=== PATIENT | male | born 1940 | race African-American/Black ===

== ENCOUNTER 2017-03-04 10:04 | Inpatient (IN) | payer MEDICARE, BC ==
[~2017-03-04] VITALS: Ht 185.4 cm; Wt 81.6 kg
[2017-03-04] MEDS ORDERED: LEVO25TA7 PO (10:13)
[2017-03-04] MEDS ORDERED: LEVETIRACETAM 500MG PREMIX 100 ML IV ONE (11:00)
[2017-03-04] MEDS ORDERED: LORAZEPAM 2MG/ML CPJ IV ONE (12:15)
[2017-03-04 12:16] LABS: *AMPHETAMINES SCREEN URINE NEGATIVE (NEGATIVE); *BARBITURATES SCREEN URINE NEGATIVE (NEGATIVE); *BENZODIAZEPINES SCREEN URINE NEGATIVE (NEGATIVE); *COCAINE SCREEN URINE NEGATIVE (NEGATIVE); CANNABINOID URINE SCREEN NEGATIVE (NEGATIVE); ECSTASY MDMA SCREEN URINE NEGATIVE (NEGATIVE); METHADONE URINE SCREEN NEGATIVE (NEGATIVE); OPIATES URINE SCREEN PRESUMTIVE POSITIVE (NEGATIVE); PHENCYCLIDINE URINE SCREEN NEGATIVE (NEGATIVE)
[2017-03-04 13:38] LABS: GLUCOSE URINE NEGATIVE (NEGATIVE); KETONES URINE NEGATIVE (NEGATIVE); LEUKOCYTE ESTERASE URINE 3+ (NEGATIVE); NITRITE URINE NEGATIVE (NEGATIVE); OCCULT BLOOD URINE 1+ (NEGATIVE); PH URINE 6.5 (4.5-8.0); PROTEIN URINE 2+ (NEGATIVE); SPECIFIC GRAVITY URINE 1.012 (1.005-1.030); UROBILINOGEN URINE 0.2 E.U./dL (0.2-1.0)
[2017-03-04 13:51] LABS: COLOR URINE YELLOW (YELLOW)
[2017-03-04 13:52] LABS: BACTERIA URINE 4+; CLARITY URINE SL HAZY (CLEAR); SQUAMOUS EPITHELIAL CELL URINE NONE SEEN /lpf (RARE/1+)
[2017-03-04 13:53] LABS: RBC URINE 0-2 /hpf (0-2); WBC URINE TNTC /hpf (0-2); YEAST URINE 1+
[2017-03-04 13:58] LABS: HEMATOCRIT. 30.9 % (42.0-52.0); HEMOGLOBIN. 10.1 g/dL (14.0-18.0); MEAN CORPUSCULAR HEMOGLOBIN 30.1 pg (28.0-32.0); MEAN CORPUSCULAR HGB CONC 32.7 g/dL (31.0-37.0); MEAN CORPUSCULAR VOLUME 91.9 fL (80.0-94.0); MEAN PLATELET VOLUME 8.2 fl (7.4-10.4); PLATELET 207 x1000/uL (130-400); RED BLOOD CELL COUNT 3.36 mill/uL (4.7-6.1); RED CELL DISTRIBUTION WIDTH 26.7 % (11.6-14.6); WHITE BLOOD COUNT 8.2 x1000/uL (4.5-11.0)
[2017-03-04 14:00] LABS: DIFFERENTIAL COMMENT 1
[2017-03-04] MEDS ORDERED: DIPHENHYDRAMINE 50MG/ML VIAL IV PRN (14:00)
[2017-03-04] MEDS ORDERED: ONDANSETRON HCL 4MG/2ML VIAL IV PRN (14:00)
[2017-03-04] MEDS ORDERED: HYDROCODONE/ACETAMINOPHEN 5/325MG TABLET PO PRN (14:00)
[2017-03-04] MEDS ORDERED: HYDROMORPHONE HCL/PF 2MG/ML CPJ IV PRN (14:00)
[2017-03-04] MEDS ORDERED: GUAIFENESIN 200MG/10ML SUGAR FREE UDC PO PRN (14:00)
[2017-03-04] MEDS ORDERED: ACETAMINOPHEN 325MG TABLET PO PRN (14:00)
[2017-03-04] MEDS ORDERED: DOCUSATE SODIUM 100MG CAPSULE PO PRN (14:00)
[2017-03-04] MEDS ORDERED: MAGNESIUM/ALUMINUM HYDROXIDE/SIMETHICONE 30ML UDC PO PRN (14:00)
[2017-03-04] MEDS ORDERED: NA PHOS,M-B/NA PHOS,DI-BA ENEMA 118ML PR PRN (14:00)
[2017-03-04] MEDS ORDERED: LORAZEPAM 2MG/ML CPJ IV PRN (14:00)
[2017-03-04] MEDS ORDERED: CLONIDINE 0.1MG TABLET PO PRN (14:00)
[2017-03-04 14:10] LABS: AMMONIA 18 uMol/L (<32)
[2017-03-04 14:15] LABS: ALANINE AMINOTRANSFERASE 78 IU/L (13-61); ALBUMIN 2.1 g/dL (3.4-5.0); ANION GAP 11; CALCIUM 7.8 mg/dL (8.5-10.1); CARBON DIOXIDE 33 mEq/L (21-32); CHLORIDE 104 mEq/L (98-107); ETHANOL BLOOD < 10 mg/dL; INDEX HEMOLYSI 1 (1-3); INDEX ICTERIC 1 (1-4); INDEX LIPEMIC 1 (1-3); TROPONIN I 0.02 ng/mL (0.00-0.04); UREA NITROGEN BLOOD 30 mg/dL (7-21); eGFR > 60 mL/min (>60)
[2017-03-04 16:25] LABS: CHLORIDE 106 mEq/L (98-107); INDEX HEMOLYSI 1 (1-3); INDEX ICTERIC 1 (1-4); INDEX LIPEMIC 1 (1-3)
[2017-03-04 16:30] LABS: ANION GAP 11; CALCIUM 7.9 mg/dL (8.5-10.1); CARBON DIOXIDE 31 mEq/L (21-32); UREA NITROGEN BLOOD 31 mg/dL (7-21)
[2017-03-04 16:35] LABS: TROPONIN I 0.03 ng/mL (0.00-0.04); eGFR > 60 mL/min (>60)
[2017-03-04 17:01] VITALS: BP 129/72
[2017-03-04 17:32] LABS: PLATELET ESTIMATE NORMAL
[2017-03-04 17:33] LABS: ANISOCYTOSIS 2+; HYPOCHROMASIA 1+
[2017-03-04 17:34] LABS: TARGET CELLS 1+
[2017-03-04] MEDS ORDERED: POTASSIUM CHLORIDE INJ 40 MEQ in DEXT 5% WATER 250 ML IV NR (18:30)
[2017-03-04] MEDS: SODIUM CHLORIDE 0.45% 1,000 ML IV SCH (20:44)
[2017-03-04 21:02] VITALS: BP 120/71
[2017-03-05] VITALS: BP 143/81
[2017-03-05 04:00] VITALS: BP 140/87
[2017-03-05] MEDS: LEVOTHYROXINE SODIUM 25MCG TABLET PO SCH (06:10)
[2017-03-05 06:36] LABS: BASOPHILS % 0.5 % (0.0-2.0); EOSINOPHILS % 0.8 % (0.0-5.0); HEMATOCRIT. 25.4 % (42.0-52.0); HEMOGLOBIN. 8.3 g/dL (14.0-18.0); LYMPHOCYTES % 7.6 % (20.0-50.0); MEAN CORPUSCULAR HEMOGLOBIN 29.9 pg (28.0-32.0); MEAN CORPUSCULAR HGB CONC 32.6 g/dL (31.0-37.0); MEAN CORPUSCULAR VOLUME 91.9 fL (80.0-94.0); MEAN PLATELET VOLUME 7.9 fl (7.4-10.4); MONOCYTES % 3.7 % (2.0-8.0); NEUTROPHILS % 87.4 % (40.0-76.0); PLATELET 195 x1000/uL (130-400); RED BLOOD CELL COUNT 2.77 mill/uL (4.7-6.1); RED CELL DISTRIBUTION WIDTH 26.6 % (11.6-14.6); WHITE BLOOD COUNT 6.6 x1000/uL (4.5-11.0)
[2017-03-05 06:39] LABS: DIFFERENTIAL COMMENT 1
[2017-03-05 06:47] LABS: CHLORIDE 109 mEq/L (98-107); INDEX HEMOLYSI 1 (1-3); INDEX ICTERIC 1 (1-4); INDEX LIPEMIC 1 (1-3)
[2017-03-05] MEDS ORDERED: KEPP500 PO (07:46)
[2017-03-05] MEDS ORDERED: OMEP20TA80 PO (07:46)
[2017-03-05] MEDS ORDERED: CALC0.253 PO (07:46)
[2017-03-05] MEDS ORDERED: FURO-151 PO (07:46)
[2017-03-05] MEDS ORDERED: PARO20TA53 PO (07:46)
[2017-03-05] MEDS ORDERED: DOCU-138 PO (07:46)
[2017-03-05] MEDS ORDERED: ALLO300T2 PO (07:46)
[2017-03-05] MEDS ORDERED: DEXA4TAB PO ×2 (07:46→12:54)
[2017-03-05 07:59] LABS: ALANINE AMINOTRANSFERASE 100 IU/L (13-61); ALBUMIN 1.7 g/dL (3.4-5.0); ANION GAP 8; CALCIUM 7.6 mg/dL (8.5-10.1); CARBON DIOXIDE 32 mEq/L (21-32); HDL CHOLESTEROL 27 mg/dL (40-59); LDL CHOLESTEROL 51 mg/dL (5-100); TRIGLYCERIDE 89 mg/dL (0-150); UREA NITROGEN BLOOD 26 mg/dL (7-21); eGFR > 60 mL/min (>60)
[2017-03-05 08:00] VITALS: BP 120/72
[2017-03-05] MEDS ORDERED: MEDICATION NOT ON FORMULARY EA (Omeprazole 1 TAB) PO SCH (09:00)
[2017-03-05] MEDS ORDERED: DEXAMETHASONE 4MG TABLET PO SCH (09:00)
[2017-03-05] MEDS: DOCUSATE SODIUM 100MG CAPSULE PO SCH (09:34)
[2017-03-05] MEDS: PAROXETINE HCL 20MG TABLET PO SCH (09:34)
[2017-03-05] MEDS: OMEPRAZOLE 20MG CAPSULE EXTENDED RELEASE PO SCH (09:34)
[2017-03-05] MEDS: LEVETIRACETAM 500MG TABLET PO SCH ×2 (09:34→18:08)
[2017-03-05] MEDS: ALLOPURINOL 300 MG TABLET PO SCH (09:35)
[2017-03-05] MEDS: FUROSEMIDE 40MG TABLET PO SCH (09:35)
[2017-03-05] MEDS: SODIUM CHLORIDE 0.45% 1,000 ML IV SCH (10:48)
[2017-03-05 12:00] VITALS: BP 153/86
[2017-03-05] MEDS: LEVOFLOXACIN 500MG PREMIX 100 ML IV SCH (12:04)
[2017-03-05 12:57] LABS: HEMATOCRIT 29.2 % (42.0-52.0); HEMOGLOBIN 9.7 g/dL (14.0-18.0)
[2017-03-05] MEDS ORDERED: TAMS-11 PO (13:08)
[2017-03-05] MEDS ORDERED: HYDR-4134 PO (13:08)
[2017-03-05] MEDS: HYDRALAZINE HCL 25MG TABLET PO SCH ×2 (13:30→22:10)
[2017-03-05] MEDS: TAMSULOSIN HCL 0.4MG SR CAPSULE PO SCH (13:30)
[2017-03-05 16:00] VITALS: BP 123/74
[2017-03-05] MEDS: DEXAMETHASONE 2MG TABLET PO SCH (18:08)
[2017-03-05 20:00] VITALS: BP 119/71
[2017-03-05] MEDS: CALCITRIOL 0.25MCG CAPSULE PO SCH (22:10)
[2017-03-06] VITALS: BP 113/74
[2017-03-06 04:00] VITALS: BP 116/75
[2017-03-06 05:48] LABS: HEMATOCRIT. 25.4 % (42.0-52.0); HEMOGLOBIN. 8.4 g/dL (14.0-18.0); MEAN CORPUSCULAR HEMOGLOBIN 30.3 pg (28.0-32.0); MEAN CORPUSCULAR HGB CONC 32.9 g/dL (31.0-37.0); PLATELET 189 x1000/uL (130-400); RED BLOOD CELL COUNT 2.76 mill/uL (4.7-6.1); RED CELL DISTRIBUTION WIDTH 26.6 % (11.6-14.6)
[2017-03-06 06:23] LABS: DIFFERENTIAL COMMENT 1
[2017-03-06 06:35] LABS: CHLORIDE 106 mEq/L (98-107); INDEX HEMOLYSI 1 (1-3); INDEX ICTERIC 1 (1-4); INDEX LIPEMIC 1 (1-3)
[2017-03-06 06:50] LABS: ANION GAP 15; CALCIUM 7.4 mg/dL (8.5-10.1); CARBON DIOXIDE 27 mEq/L (21-32); UREA NITROGEN BLOOD 21 mg/dL (7-21); eGFR > 60 mL/min (>60)
[2017-03-06] MEDS: OMEPRAZOLE 20MG CAPSULE EXTENDED RELEASE PO SCH (07:06)
[2017-03-06] MEDS: HYDRALAZINE HCL 25MG TABLET PO SCH ×4 (07:06→21:35)
[2017-03-06] MEDS: LEVOTHYROXINE SODIUM 25MCG TABLET PO SCH (07:06)
[2017-03-06] MEDS: SODIUM CHLORIDE 0.45% 1,000 ML IV SCH (07:07)
[2017-03-06 08:00] VITALS: BP 123/78
[2017-03-06] MEDS: FUROSEMIDE 40MG TABLET PO SCH (09:40)
[2017-03-06] MEDS: ALLOPURINOL 300 MG TABLET PO SCH (09:41)
[2017-03-06] MEDS: DOCUSATE SODIUM 100MG CAPSULE PO SCH (09:41)
[2017-03-06] MEDS: TAMSULOSIN HCL 0.4MG SR CAPSULE PO SCH (09:41)
[2017-03-06] MEDS: PAROXETINE HCL 20MG TABLET PO SCH (09:41)
[2017-03-06] MEDS: LEVETIRACETAM 500MG TABLET PO SCH ×2 (09:41→17:33)
[2017-03-06] MEDS: DEXAMETHASONE 2MG TABLET PO SCH ×2 (09:44→17:33)
[2017-03-06 12:00] VITALS: BP 134/81
[2017-03-06 13:13] LABS: ANISOCYTOSIS 2+; PLATELET ESTIMATE NORMAL
[2017-03-06] MEDS: LEVOFLOXACIN 500MG PREMIX 100 ML IV SCH (13:14)
[2017-03-06 17:00] VITALS: BP 132/81
[2017-03-06 20:00] VITALS: BP 120/73
[2017-03-06] MEDS: CALCITRIOL 0.25MCG CAPSULE PO SCH (21:28)
[2017-03-07] VITALS: BP 118/70
[2017-03-07 04:00] VITALS: BP 123/86
[2017-03-07 06:22] LABS: HEMATOCRIT. 24.4 % (42.0-52.0); HEMOGLOBIN. 8.2 g/dL (14.0-18.0); MEAN CORPUSCULAR HEMOGLOBIN 30.9 pg (28.0-32.0); MEAN CORPUSCULAR HGB CONC 33.6 g/dL (31.0-37.0); MEAN CORPUSCULAR VOLUME 91.7 fL (80.0-94.0); MEAN PLATELET VOLUME 8.4 fl (7.4-10.4); PLATELET 205 x1000/uL (130-400); RED BLOOD CELL COUNT 2.66 mill/uL (4.7-6.1); RED CELL DISTRIBUTION WIDTH 25.8 % (11.6-14.6)
[2017-03-07] MEDS: HYDRALAZINE HCL 25MG TABLET PO SCH ×3 (06:23→21:02)
[2017-03-07] MEDS: LEVOTHYROXINE SODIUM 25MCG TABLET PO SCH (06:23)
[2017-03-07 06:47] LABS: CHLORIDE 103 mEq/L (98-107); DIFFERENTIAL COMMENT 1; INDEX HEMOLYSI 1 (1-3); INDEX ICTERIC 1 (1-4); INDEX LIPEMIC 1 (1-3)
[2017-03-07 07:06] LABS: ANION GAP 14; CALCIUM 7.7 mg/dL (8.5-10.1); CARBON DIOXIDE 28 mEq/L (21-32); UREA NITROGEN BLOOD 24 mg/dL (7-21); eGFR > 60 mL/min (>60)
[2017-03-07 08:00] VITALS: BP 116/76
[2017-03-07] MEDS: FAMOTIDINE 20MG TABLET PO SCH ×2 (08:27→17:23)
[2017-03-07] MEDS: ALLOPURINOL 300 MG TABLET PO SCH (08:27)
[2017-03-07] MEDS: FUROSEMIDE 40MG TABLET PO SCH (08:27)
[2017-03-07] MEDS: TAMSULOSIN HCL 0.4MG SR CAPSULE PO SCH (08:28)
[2017-03-07] MEDS: PAROXETINE HCL 20MG TABLET PO SCH (08:28)
[2017-03-07] MEDS: DOCUSATE SODIUM 100MG CAPSULE PO SCH (08:28)
[2017-03-07] MEDS: DEXAMETHASONE 2MG TABLET PO SCH ×2 (08:28→17:23)
[2017-03-07] MEDS: LEVETIRACETAM 500MG TABLET PO SCH ×2 (08:28→17:23)
[2017-03-07] MEDS ORDERED: LACTULOSE 20G/30ML UDC PO PRN (09:15)
[2017-03-07] MEDS: NITROFURANTOIN 100MG M/M CAPSULE PO SCH ×2 (10:24→21:02)
[2017-03-07] MEDS: SODIUM CHLORIDE 0.45% 1,000 ML IV SCH (10:28)
[2017-03-07] MEDS ORDERED: LEVOFLOXACIN 500MG TABLET PO SCH (11:00)
[2017-03-07 12:00] VITALS: BP 129/88
[2017-03-07 13:42] LABS: ANISOCYTOSIS 1+; PLATELET ESTIMATE NORMAL
[2017-03-07 16:00] VITALS: BP 151/75
[2017-03-07 20:00] VITALS: BP_SYST 130; BP_SYST 153; BP_DIAS 89; BP_DIAS 92
[2017-03-07] MEDS: CALCITRIOL 0.25MCG CAPSULE PO SCH (21:02)
[2017-03-08] VITALS: BP 148/90
[2017-03-08] MEDS: SODIUM CHLORIDE 0.45% 1,000 ML IV SCH ×2 (02:01→17:28)
[2017-03-08 04:00] VITALS: BP 137/87
[2017-03-08 05:49] LABS: BASOPHILS % 0.1 % (0.0-2.0); EOSINOPHILS % 0.2 % (0.0-5.0); HEMATOCRIT. 24.7 % (42.0-52.0); HEMOGLOBIN. 8.1 g/dL (14.0-18.0); MEAN CORPUSCULAR HEMOGLOBIN 30.1 pg (28.0-32.0); MEAN CORPUSCULAR HGB CONC 32.8 g/dL (31.0-37.0); MEAN CORPUSCULAR VOLUME 91.7 fL (80.0-94.0); MONOCYTES % 4.8 % (2.0-8.0); NEUTROPHILS % 86.9 % (40.0-76.0); PLATELET 213 x1000/uL (130-400); RED CELL DISTRIBUTION WIDTH 25.1 % (11.6-14.6); WHITE BLOOD COUNT 8.3 x1000/uL (4.5-11.0)
[2017-03-08 06:35] LABS: ANION GAP 12; CALCIUM 7.2 mg/dL (8.5-10.1); CARBON DIOXIDE 29 mEq/L (21-32); CHLORIDE 102 mEq/L (98-107); INDEX HEMOLYSI 1 (1-3); INDEX ICTERIC 1 (1-4); INDEX LIPEMIC 1 (1-3); UREA NITROGEN BLOOD 18 mg/dL (7-21); eGFR > 60 mL/min (>60)
[2017-03-08 06:49] LABS: ADD RBC MORPHOLOGY NO; DIFFERENTIAL COMMENT 1
[2017-03-08] MEDS: LEVOTHYROXINE SODIUM 25MCG TABLET PO SCH (07:00)
[2017-03-08] MEDS: HYDRALAZINE HCL 25MG TABLET PO SCH ×3 (07:00→21:41)
[2017-03-08 08:00] VITALS: BP 126/73
[2017-03-08] MEDS: NITROFURANTOIN 100MG M/M CAPSULE PO SCH ×2 (08:51→21:41)
[2017-03-08] MEDS: DOCUSATE SODIUM 100MG CAPSULE PO SCH (08:51)
[2017-03-08] MEDS: FAMOTIDINE 20MG TABLET PO SCH ×2 (08:52→17:28)
[2017-03-08] MEDS: LEVETIRACETAM 500MG TABLET PO SCH ×2 (08:52→17:29)
[2017-03-08] MEDS: PAROXETINE HCL 20MG TABLET PO SCH (08:52)
[2017-03-08] MEDS: DEXAMETHASONE 2MG TABLET PO SCH ×2 (08:52→17:28)
[2017-03-08] MEDS: FUROSEMIDE 40MG TABLET PO SCH (08:52)
[2017-03-08] MEDS: TAMSULOSIN HCL 0.4MG SR CAPSULE PO SCH (08:52)
[2017-03-08] MEDS: ALLOPURINOL 300 MG TABLET PO SCH (08:52)
[2017-03-08] MEDS ORDERED: POTASSIUM CHLORIDE 20MEQ TABLET SR PO NR (10:30)
[2017-03-08 12:00] VITALS: BP 120/74
[2017-03-08 16:00] VITALS: BP 127/84
[2017-03-08 19:54] VITALS: BP 115/74
[2017-03-08] MEDS: CALCITRIOL 0.25MCG CAPSULE PO SCH (21:41)
[2017-03-09] VITALS: BP 120/79
[2017-03-09 04:00] VITALS: BP 130/81
[2017-03-09] MEDS: LEVOTHYROXINE SODIUM 25MCG TABLET PO SCH (05:59)
[2017-03-09] MEDS: HYDRALAZINE HCL 25MG TABLET PO SCH (06:00)
[2017-03-09 08:00] VITALS: BP 137/86
[2017-03-09] MEDS: ALLOPURINOL 300 MG TABLET PO SCH (09:09)
[2017-03-09] MEDS: FUROSEMIDE 40MG TABLET PO SCH (09:09)
[2017-03-09] MEDS: DOCUSATE SODIUM 100MG CAPSULE PO SCH (09:09)
[2017-03-09] MEDS: NITROFURANTOIN 100MG M/M CAPSULE PO SCH (09:09)
[2017-03-09] MEDS: LEVETIRACETAM 500MG TABLET PO SCH (09:10)
[2017-03-09] MEDS: PAROXETINE HCL 20MG TABLET PO SCH (09:10)
[2017-03-09] MEDS: TAMSULOSIN HCL 0.4MG SR CAPSULE PO SCH (09:11)
[2017-03-09] MEDS: FAMOTIDINE 20MG TABLET PO SCH (09:11)
[2017-03-09 12:00] VITALS: BP 133/83
[2017-03-09 14:07] VITALS: BP 132/92
== END 2017-03-09 15:35 | disposition home or self-care (01) | DRG 377 ==
LOC: ER 10:21 → 5WST 14:07
PROVIDERS: ADMIT Internal Medicine; ATTEND Internal Medicine
DX: K92.2 Gastrointestinal hemorrhage, unspecified (principal); G93.41 Metabolic encephalopathy; E46 Unspecified protein-calorie malnutrition; N39.0 Urinary tract infection, site not specified; C79.9 Secondary malignant neoplasm of unspecified site; D49.6 Neoplasm of unspecified behavior of brain; E86.0 Dehydration; D64.9 Anemia, unspecified; E87.6 Hypokalemia; L65.9 Nonscarring hair loss, unspecified; Z92.21 Personal history of antineoplastic chemotherapy; Z79.899 Other long term (current) drug therapy; Z68.23 Body mass index [BMI] 23.0-23.9, adult
CPT/HCPCS: 36415; 51702; 70450; 71010; 74176; 80048; 80053; 80061; 80305; 81001; 82140; 82270; 83605; 84484; 85014; 85018; 85025; 87077; 87086; 87186; 96365; 96375; 97162; 99291; G0482; J1953; J1956; J2060; J3480; J7040; J7060; J8540; A5200